=== PATIENT | male | born 1960 | race African-American/Black ===

== ENCOUNTER 2018-01-25 07:56 | Emergency (ER) | payer MEDICAID, OTHER ==
[~2018-01-25] VITALS: Ht 180.3 cm; Wt 90.0 kg
[2018-01-25] MEDS ORDERED: LORazepam 1 MG TABLET PO ONE (08:15)
[2018-01-25 08:18] LABS: GLUCOSE,POINT OF CARE 170 MG/DL (70-110)
[2018-01-25] MEDS ORDERED: ONDANSETRON HCL 4 MG/2 ML VIAL IVP ONE (09:00)
[2018-01-25 09:05] LABS: BASOPHILS % (AUTO) 1.2 % (0.0-2.0); EOSINOPHILS % (AUTO) 0.8 % (1.0-6.0); HEMATOCRIT 44.4 % (41-53); HEMOGLOBIN 14.8 g/dL (13.5-17.5); LYMPHOCYTES # (AUTO) 1.7 K/uL (1.0-4.8); MEAN CORPUSCULAR HEMOGLOBIN 34.7 pg (26.0-34.0); MEAN CORPUSCULAR HGB CONC 33.3 G/dL (31.0-37.0); MEAN CORPUSCULAR VOLUME 104 fL (80-100); MONOCYTES # (AUTO) 0.5 K/uL (0.1-1.0); MONOCYTES % (AUTO) 6.3 % (2.0-9.0); NEUTROPHILS # (AUTO) 6.1 K/uL (1.8-7.7); NEUTROPHILS % (AUTO) 71.7 % (40.0-70.0); PLATELET COUNT (AUTO) 298 K/uL (150-450); RED BLOOD CELL COUNT(AUTO) 4.27 MIL/uL (4.50-5.90); RED CELL DISTRIBUTION WIDTH 18.7 % (11.5-14.5)
[2018-01-25 09:12] LABS: ANION GAP 16 mmol/L (8-16); CALCIUM, TOTAL 9.4 mg/dL (8.8-10.5); CARBON DIOXIDE 22 mmol/L (22-29); CHLORIDE 100 mmol/L (98-107); CREATININE 1.27 mg/dL (0.60-1.30); GLOMERULAR FILTR. RATE CALC > 60 mL/min (>60); GLUCOSE,RANDOM 228 mg/dL (70-110); POTASSIUM 4.7 mmol/L (3.5-5.1); SODIUM SERUM 138 mmol/L (136-145); UREA NITROGEN, BLOOD 6 mg/dL (7-18)
[2018-01-25 09:18] LABS: ALANINE AMINOTRANSFERASE 48 U/L (12-78); ALBUMIN 3.3 g/dL (3.4-5.0); ALKALINE PHOSPHATASE 138 U/L (46-116); ASPARTATE AMINOTRANSFERASE 69 U/L (15-37); BILIRUBIN,TOTAL 0.4 mg/dL (0.1-1.0); TOTAL PROTEIN, SERUM 7.9 g/dL (6.4-8.2)
[2018-01-25 10:13] VITALS: BP 164/117
[2018-01-25] MEDS ORDERED: ChlordiazePOXIDE HCL 25 MG CAPSULE PO ONE (11:15)
== END 2018-01-25 10:40 | disposition home or self-care (01) ==
LOC: EMS 07:57
DX: F10.239 Alcohol dependence with withdrawal, unspecified (principal); K21.9 Gastro-esophageal reflux disease without esophagitis; R56.9 Unspecified convulsions; F17.210 Nicotine dependence, cigarettes, uncomplicated; Y90.0 Blood alcohol level of less than 20 mg/100 ml
CPT/HCPCS: 36415; 70450; 80053; 82962; 85025; 96374; 99285; G0480; J2405

== ENCOUNTER 2018-09-18 11:17 | Emergency (ER) | payer MEDICAID ==
[~2018-09-18] VITALS: Ht 182.9 cm; Wt 88.6 kg
[2018-09-18] MEDS ORDERED: ChlordiazePOXIDE HCL 25 MG CAPSULE PO ONE (12:00)
[2018-09-18 12:13] VITALS: BP 142/103
== END 2018-09-18 12:18 | disposition home or self-care (01) ==
LOC: EMS 11:18
DX: F10.229 Alcohol dependence with intoxication, unspecified (principal); F17.210 Nicotine dependence, cigarettes, uncomplicated; K21.9 Gastro-esophageal reflux disease without esophagitis; Y90.9 Presence of alcohol in blood, level not specified
CPT/HCPCS: 99283; 99406

== ENCOUNTER 2024-08-22 08:03 | Emergency (ER) | payer MEDICARE, MEDICAID ==
[~2024-08-22] VITALS: Ht 182.9 cm; Wt 81.8 kg
[2024-08-22 08:12] VITALS: BP 152/94; PULSE 92; RESP 18; TEMP 98.5; O2SAT 95
[2024-08-22] MEDS: LevETIRAcetam 500 MG TABLET PO ONE (08:22)
[2024-08-22 17:51] LABS: GLUCOMETER DEV NAME(LOC) ERT.6; GLUCOSE,POINT OF CARE 167 MG/DL (70-110)
== END 2024-08-22 09:30 | disposition home or self-care (01) ==
LOC: EMS 08:03
DX: R56.9 Unspecified convulsions (principal); R40.4 Transient alteration of awareness; F17.210 Nicotine dependence, cigarettes, uncomplicated; F10.20 Alcohol dependence, uncomplicated
CPT/HCPCS: 82962; 93005; 99283; 99406